=== PATIENT | female | born 1970 ===

== ENCOUNTER 2020-08-12 12:30 | Inpatient (IN) | payer OTHER ==
[~2020-08-12] VITALS: Ht 177.8 cm; Wt 145.0 kg
--- NOTE | 2020-08-12 12:45 | NUR ---
late entry for 1245: pt brought by family to ED with c/o cough, fever, fatigue, nausea, diarrhea and sore throat x 6 days. pt became sob when lying or with exertion starting yesterday. pt had a headache several days ago but denies at this time. pt is a&o, resps even and mildly labored, shallow. pt able to speak in full sentences without difficulty. afib RVR noted on arrival, no prior history of. pulse ox taken at home [employer] prevention [employer] was 55% on room air per family. outpatient covid test pending (taken 5 days ago), pt has had contact with covid+ persons. pt is neurologically intact. denies pain. all monitors in place, call light in reach. JAMIL eDl Rosario at bedside.
[2020-08-12] MEDS ORDERED: DILTIAZEM 5 MG/ML, 5ML ONE (13:16)
[2020-08-12] MEDS ORDERED: DILTIAZEM 5 MG/ML, 5ML IVPush ONE (13:30)
[2020-08-12] MEDS ORDERED: CEFTRIAXONE PMX 1GM/50ML 50 ML IVPB ONE (13:30)
[2020-08-12] MEDS ORDERED: PLEASE ENTER HEIGHT AND WEIGHT MC SCH (13:30)
[2020-08-12] MEDS ORDERED: PLEASE ENTER ALLERGIES MC SCH (13:30)
[2020-08-12] MEDS ORDERED: SODIUM CHLORIDE 0.9%, 500ML IVBOLUS ONE (13:30)
[2020-08-12] MEDS ORDERED: AZITHROMYCIN 500 MG in SODIUM CHLORIDE 0.9% 250 ML IV ONE (13:30)
[2020-08-12 13:38] LABS: ALBUMIN 2.9 g/dL (3.4-5.0); ANION GAP 8 mmol/L (5-15); CALCIUM 8.3 mg/dL (8.5-10.1); CHLORIDE 97 mmol/L (98-107)
[2020-08-12 13:39] LABS: BASOPHILS % (AUTO) 0 % (0-1); EOSINOPHILS % (AUTO) 0 % (1-7); LYMPHOCYTES % (AUTO) 27 % (22-44); MEAN CORPUSCULAR HEMOGLOBIN 30.9 pg (27.0-34.8); MEAN CORPUSCULAR HGB CONC 34.6 g/dL (32.4-35.8); MEAN PLATELET VOLUME 7.6 fL (7.4-10.4); MONOCYTES % (AUTO) 9 % (2-9); NEUTROPHILS % (AUTO) 64 % (42-75); PLATELET COUNT 158 x10^3/uL (130-400); RED BLOOD COUNT 4.47 x10^6/uL (3.82-5.3)
--- NOTE | 2020-08-12 13:40 | NUR ---
on arrival, HR was 120-180, afib. no ectopy noted. EDMD Miguel Ángel aware, diltiazem ordered and pushed slowly over 10 min. HR now 110-130s, afib, no ectopy. pt a&o, resps even and unlabored, rate 30s. no increase in work of breathing from arrival. call light in reach. all monitors in place.
[2020-08-12 13:43] LABS: MD NO
[2020-08-12 13:44] LABS: ALANINE AMINOTRANSFERASE 56 U/L (12-78); ALKALINE PHOSPHATASE 102 U/L (45-117); BILIRUBIN,TOTAL 0.3 mg/dL (0.2-1.0); CREATININE 0.67 mg/dL (0.55-1.02); TOTAL PROTEIN 6.7 g/dL (6.4-8.2)
--- NOTE | 2020-08-12 13:50 | NUR ---
report given to ALLYSON Beverly who is assuming care.
[2020-08-12 13:53] LABS: TROPONIN I 0.387 ng/mL (0.000-0.045)
[2020-08-12] MEDS ORDERED: CEFTRIAXONE PMX 1GM/50ML 50 ML ONE (14:06)
--- NOTE | 2020-08-12 14:10 | NUR ---
MD castillo notified troponin 0.387. is awaiting cardiology consult.
[2020-08-12] MEDS ORDERED: ASPIRIN 81 MG TABLET CHEW PO ONE (14:12)
--- NOTE | 2020-08-12 14:15 | NUR ---
PT IN [place]
[2020-08-12] MEDS ORDERED: OMNIPAQUE 350 MG/ML, 100ML BOTTLE ONE (14:29)
[2020-08-12] MEDS ORDERED: DEXAMETHASONE 4 MG/ML, 5ML ONE (14:36)
[2020-08-12] MEDS ORDERED: ASPIRIN 81 MG TABLET CHEW ONE (14:37)
[2020-08-12] MEDS: DEXAMETHASONE 4 MG/ML, 1ML IVPush SCH ×2 (14:40→15:03)
[2020-08-12] MEDS ORDERED: DIGOXIN 0.25 MG/ML, 2ML IVPush ONE (15:00)
[2020-08-12] MEDS ORDERED: DIGOXIN 0.25 MG/ML, 2ML ONE (15:04)
[2020-08-12] MEDS ORDERED: YAZ PO (15:23)
[2020-08-12] MEDS ORDERED: OMEP20TA62 PO (15:23)
[2020-08-12] MEDS ORDERED: LEVO125T5 PO (15:23)
[2020-08-12] MEDS ORDERED: VENL100T PO (15:23)
[2020-08-12] MEDS ORDERED: MELO15TA24 PO (15:23)
[2020-08-12] MEDS ORDERED: PHARMACY INSTRUCTION MC PRN (15:30)
[2020-08-12] MEDS ORDERED: THIAMINE 100MG TABLET PO SCH (16:00)
[2020-08-12] MEDS ORDERED: SODIUM CHLORIDE 0.9% 1,000 ML IV SCH (16:00)
[2020-08-12] MEDS ORDERED: DILTIAZEM 125 MG in SODIUM CHLORIDE 0.9% 100 ML IV SCH (16:00)
[2020-08-12] MEDS ORDERED: REMDESIVIR 200 MG in SODIUM CHLORIDE 0.9% 250 ML IVPB ONE (16:00)
[2020-08-12] MEDS ORDERED: ONDANSETRON 2MG/ML, 2ML IVPush PRN (16:00)
[2020-08-12] MEDS ORDERED: MELATONIN 5 MG TABLET PO PRN (16:00)
[2020-08-12] MEDS ORDERED: ACETAMINOPHEN 325 MG TABLET PO PRN (16:00)
[2020-08-12] MEDS ORDERED: MORPHINE SULFATE 4 MG/ML, 1ML IVPush PRN (16:30)
[2020-08-12] MEDS ORDERED: ASCORBIC ACID 250 MG TAB PO SCH (17:00)
[2020-08-12] MEDS ORDERED: METOPROLOL TARTRATE 25 MG TAB ONE (17:03)
[2020-08-12] MEDS ORDERED: ASCORBIC ACID 500 MG TABLET ONE (17:25)
[2020-08-12] MEDS: ENOXAPARIN 150 MG/ML SQ SCH (17:28)
[2020-08-12] MEDS: METOPROLOL TARTRATE 25 MG TAB PO SCH (17:28)
[2020-08-12] MEDS: DILTIAZEM 125 MG in SODIUM CHLORIDE 0.9% 100 ML IV SCH (17:35)
[2020-08-12 19:47] VITALS: BP 111/75
[2020-08-13] MEDS: METOPROLOL TARTRATE 25 MG TAB PO SCH ×3 (00:47→17:57)
[2020-08-13 02:26] VITALS: BP 109/73
[2020-08-13] MEDS: LEVOTHYROXINE 125 MCG TABLET PO SCH (04:46)
[2020-08-13] MEDS: DILTIAZEM 125 MG in SODIUM CHLORIDE 0.9% 100 ML IV SCH (04:46)
[2020-08-13] MEDS: ENOXAPARIN 150 MG/ML SQ SCH ×2 (04:46→17:57)
[2020-08-13 06:04] LABS: MEAN CORPUSCULAR HEMOGLOBIN 30.6 pg (27.0-34.8); MEAN CORPUSCULAR HGB CONC 33.9 g/dL (32.4-35.8); MEAN PLATELET VOLUME 7.9 fL (7.4-10.4); PLATELET COUNT 184 x10^3/uL (130-400); RED BLOOD COUNT 4.63 x10^6/uL (3.82-5.3); RED CELL DISTRIBUTION WIDTH 13.1 % (9.6-15.2)
[2020-08-13 06:11] LABS: ALBUMIN 2.8 g/dL (3.4-5.0); CALCIUM 8.6 mg/dL (8.5-10.1); CHLORIDE 101 mmol/L (98-107)
[2020-08-13 06:22] LABS: ALANINE AMINOTRANSFERASE 65 U/L (12-78); ALKALINE PHOSPHATASE 111 U/L (45-117); ANION GAP 7 mmol/L (5-15); BILIRUBIN,TOTAL 0.3 mg/dL (0.2-1.0); CREATININE 0.71 mg/dL (0.55-1.02); TOTAL PROTEIN 7.1 g/dL (6.4-8.2)
[2020-08-13 06:24] LABS: D-DIMER 0.57 ug/mlFEU (0.00-0.52)
[2020-08-13 06:44] VITALS: BP 104/71
[2020-08-13 06:52] LABS: MD YES
[2020-08-13 06:54] LABS: BAND#(MANUAL) 0.08 x10^3/uL; BANDS%(MANUAL) 3 % (0-7); LYMPH#(MANUAL) 1.08 x10^3/uL (1-3.4); LYMPHS% (MANUAL) 43 % (22-44); METAMYELOCYTES# (MANUAL) 0.03 x10^3/uL (0-0); METAMYELOCYTES% (MANUAL) 1 % (0-1); MONOS#(MANUAL) 0.28 x10^3/uL (0.3-2.7); MONOS% (MANUAL) 11 % (2-9); REACTIVE LYMPHS # (MANUAL) 0.05 x10^3/uL (0-0); REACTIVE LYMPHS % (MANUAL) 2 % (0-0); SEGS% (MANUAL) 40 % (42-75)
[2020-08-13 06:55] LABS: <RBC MORPHOLOGY> NORMAL
[2020-08-13 06:56] LABS: <PLATELET ESTIMATE> ADEQUATE; <PLT MORPHOLOGY> NORMAL PLT MORPH
[2020-08-13] MEDS: VENLAFAXINE 75MG TABLET PO SCH (08:57)
[2020-08-13] MEDS: OMEPRAZOLE 20 MG CAPSULE.DR PO SCH (08:57)
[2020-08-13] MEDS: ASCORBIC ACID 500 MG TABLET PO SCH ×3 (08:58→17:57)
[2020-08-13] MEDS: ZINC SULFATE 220 MG CAPSULE PO SCH (08:58)
[2020-08-13] MEDS: CHOLECALCIFEROL 5,000u TAB PO SCH (08:58)
[2020-08-13] MEDS: DEXAMETHASONE 4 MG/ML, 1ML IVPush SCH (08:59)
[2020-08-13] MEDS: DILTIAZEM 120 MG CAP.ER.24H PO SCH ×2 (11:46→20:35)
[2020-08-13 12:03] VITALS: BP 111/75
[2020-08-13] MEDS: CEFTRIAXONE PMX 1GM/50ML 50 ML IV SCH (13:46)
[2020-08-13] MEDS: AZITHROMYCIN 500 MG in SODIUM CHLORIDE 0.9% 250 ML IV SCH (14:57)
[2020-08-13] MEDS: REMDESIVIR 100 MG in SODIUM CHLORIDE 0.9% 250 ML IVPB SCH (15:16)
[2020-08-13 18:57] LABS: CLOSTRIDIUM DIFFICILE ANTIGEN NEGATIVE; CLOSTRIDIUM DIFFICILE TOXIN NEGATIVE (Negative)
[2020-08-13 20:08] VITALS: BP 98/76
[2020-08-14] MEDS: METOPROLOL TARTRATE 25 MG TAB PO SCH ×2 (00:44→07:52)
[2020-08-14 02:22] VITALS: BP 115/78
[2020-08-14] MEDS: LEVOTHYROXINE 125 MCG TABLET PO SCH (05:11)
[2020-08-14] MEDS: ENOXAPARIN 150 MG/ML SQ SCH ×2 (05:11→16:57)
[2020-08-14 06:25] LABS: CHLORIDE 106 mmol/L (98-107)
[2020-08-14 06:34] LABS: MEAN CORPUSCULAR HEMOGLOBIN 30.5 pg (27.0-34.8); MEAN CORPUSCULAR HGB CONC 33.6 g/dL (32.4-35.8); MEAN PLATELET VOLUME 8.2 fL (7.4-10.4); PLATELET COUNT 230 x10^3/uL (130-400); RED BLOOD COUNT 4.27 x10^6/uL (3.82-5.3); RED CELL DISTRIBUTION WIDTH 12.9 % (9.6-15.2)
[2020-08-14 06:36] LABS: ALANINE AMINOTRANSFERASE 74 U/L (12-78); ALBUMIN 2.6 g/dL (3.4-5.0); ALKALINE PHOSPHATASE 94 U/L (45-117); ANION GAP 5 mmol/L (5-15); BILIRUBIN,TOTAL 0.4 mg/dL (0.2-1.0); CALCIUM 8.2 mg/dL (8.5-10.1); CREATININE 0.58 mg/dL (0.55-1.02); TOTAL PROTEIN 6.1 g/dL (6.4-8.2)
[2020-08-14] MEDS: CHOLECALCIFEROL 5,000u TAB PO SCH (07:52)
[2020-08-14] MEDS: ZINC SULFATE 220 MG CAPSULE PO SCH (07:52)
[2020-08-14] MEDS: OMEPRAZOLE 20 MG CAPSULE.DR PO SCH (07:52)
[2020-08-14] MEDS: VENLAFAXINE 75MG TABLET PO SCH (07:52)
[2020-08-14] MEDS: ASCORBIC ACID 500 MG TABLET PO SCH ×3 (07:52→16:56)
[2020-08-14] MEDS: DILTIAZEM 120 MG CAP.ER.24H PO SCH (07:53)
[2020-08-14] MEDS: DEXAMETHASONE 4 MG/ML, 1ML IVPush SCH (07:53)
[2020-08-14 07:55] VITALS: BP 111/79
[2020-08-14 09:18] LABS: MD YES
[2020-08-14 09:22] LABS: LYMPH#(MANUAL) 1.14 x10^3/uL (1-3.4); LYMPHS% (MANUAL) 38 % (22-44); MONOS#(MANUAL) 0.72 x10^3/uL (0.3-2.7); MONOS% (MANUAL) 24 % (2-9); SEG#(MANUAL) 1.14 x10^3/uL (1.8-6.8); SEGS% (MANUAL) 38 % (42-75)
[2020-08-14 09:23] LABS: <PLATELET ESTIMATE> ADEQUATE; <PLT MORPHOLOGY> NORMAL PLT MORPH; <RBC MORPHOLOGY> NORMAL
[2020-08-14 12:01] VITALS: BP 101/71
[2020-08-14] MEDS: CEFTRIAXONE PMX 1GM/50ML 50 ML IV SCH (14:29)
[2020-08-14] MEDS: AZITHROMYCIN 500 MG in SODIUM CHLORIDE 0.9% 250 ML IV SCH (15:27)
[2020-08-14] MEDS ORDERED: POTASSIUM CHLORIDE 20 MEQ TAB.ER.PRT PO ONE (16:00)
[2020-08-14] MEDS ORDERED: FUROSEMIDE 40 MG/4 ML IV ONE (16:00)
[2020-08-14] MEDS: LACTOBACILLUS CHEW TABLET PO SCH ×2 (16:57→20:58)
[2020-08-14] MEDS: REMDESIVIR 100 MG in SODIUM CHLORIDE 0.9% 250 ML IVPB SCH (16:57)
[2020-08-14 18:53] VITALS: BP 110/76
[2020-08-14] MEDS: DILTIAZEM CD 180 MG CAP.ER.24H PO SCH (20:59)
[2020-08-15 00:40] VITALS: BP 83/42
[2020-08-15 04:00] VITALS: BP 116/81
[2020-08-15] MEDS: LEVOTHYROXINE 125 MCG TABLET PO SCH (05:24)
[2020-08-15] MEDS: ENOXAPARIN 150 MG/ML SQ SCH ×2 (05:24→16:31)
[2020-08-15 06:22] LABS: BASOPHILS % (AUTO) 0 % (0-1); EOSINOPHILS % (AUTO) 0 % (1-7); LYMPHOCYTES % (AUTO) 49 % (22-44); MEAN CORPUSCULAR HGB CONC 34.2 g/dL (32.4-35.8); MEAN PLATELET VOLUME 7.1 fL (7.4-10.4); MONOCYTES % (AUTO) 19 % (2-9); NEUTROPHILS % (AUTO) 32 % (42-75); PLATELET COUNT 252 x10^3/uL (130-400); RED BLOOD COUNT 4.31 x10^6/uL (3.82-5.3); RED CELL DISTRIBUTION WIDTH 13.3 % (9.6-15.2)
[2020-08-15 06:23] LABS: MD NO
[2020-08-15 06:48] VITALS: BP 116/88
[2020-08-15 06:53] LABS: D-DIMER < 0.19 ug/mlFEU (0.00-0.52); FIBRINOGEN 337 mg/dL (200-340)
[2020-08-15] MEDS ORDERED: DEXAMETHASONE 4 MG/ML, 5ML ONE (09:27)
[2020-08-15] MEDS: VENLAFAXINE 75MG TABLET PO SCH (09:58)
[2020-08-15] MEDS: CHOLECALCIFEROL 5,000u TAB PO SCH (09:58)
[2020-08-15] MEDS: OMEPRAZOLE 20 MG CAPSULE.DR PO SCH (09:58)
[2020-08-15] MEDS: ZINC SULFATE 220 MG CAPSULE PO SCH (09:58)
[2020-08-15] MEDS: DILTIAZEM CD 180 MG CAP.ER.24H PO SCH ×2 (09:58→20:22)
[2020-08-15] MEDS: ASCORBIC ACID 500 MG TABLET PO SCH ×3 (09:58→16:31)
[2020-08-15] MEDS: DEXAMETHASONE 4 MG/ML, 1ML IVPush SCH (09:59)
[2020-08-15] MEDS ORDERED: DIPHENOXYLATE/ATROPINE TABLET PO PRN (10:00)
[2020-08-15] MEDS: CEFTRIAXONE PMX 1GM/50ML 50 ML IV SCH (13:17)
[2020-08-15 14:00] VITALS: BP 112/75
[2020-08-15] MEDS: AZITHROMYCIN 500 MG in SODIUM CHLORIDE 0.9% 250 ML IV SCH (14:14)
[2020-08-15] MEDS: REMDESIVIR 100 MG in SODIUM CHLORIDE 0.9% 250 ML IVPB SCH (16:32)
[2020-08-15 18:56] VITALS: BP 106/70
[2020-08-16 00:05] VITALS: BP 119/86
[2020-08-16] MEDS: LEVOTHYROXINE 125 MCG TABLET PO SCH (05:33)
[2020-08-16] MEDS: ENOXAPARIN 150 MG/ML SQ SCH (05:35)
[2020-08-16 06:34] VITALS: BP 108/70
[2020-08-16 06:49] LABS: ALBUMIN 2.7 g/dL (3.4-5.0); ANION GAP 7 mmol/L (5-15); CALCIUM 8.3 mg/dL (8.5-10.1); CHLORIDE 104 mmol/L (98-107)
[2020-08-16 06:52] LABS: ALANINE AMINOTRANSFERASE 81 U/L (12-78); ALKALINE PHOSPHATASE 92 U/L (45-117); BILIRUBIN,TOTAL 0.6 mg/dL (0.2-1.0); CREATININE 0.47 mg/dL (0.55-1.02); TOTAL PROTEIN 6.1 g/dL (6.4-8.2)
[2020-08-16] MEDS ORDERED: DEXAMETHASONE 4 MG/ML, 5ML ONE (08:54)
[2020-08-16] MEDS: DILTIAZEM CD 180 MG CAP.ER.24H PO SCH (09:06)
[2020-08-16] MEDS: ZINC SULFATE 220 MG CAPSULE PO SCH (09:06)
[2020-08-16] MEDS: VENLAFAXINE 75MG TABLET PO SCH (09:06)
[2020-08-16] MEDS: CHOLECALCIFEROL 5,000u TAB PO SCH (09:06)
[2020-08-16] MEDS: ASCORBIC ACID 500 MG TABLET PO SCH ×2 (09:06→12:08)
[2020-08-16] MEDS: DEXAMETHASONE 4 MG/ML, 1ML IVPush SCH (09:07)
[2020-08-16] MEDS: OMEPRAZOLE 20 MG CAPSULE.DR PO SCH (09:07)
[2020-08-16] MEDS ORDERED: ZINC220C7 PO (09:44)
[2020-08-16] MEDS ORDERED: LOPE2CAP3 PO (09:44)
[2020-08-16] MEDS ORDERED: ASCO500T9 PO (09:44)
[2020-08-16] MEDS ORDERED: CHOL500045 PO (09:44)
[2020-08-16] MEDS ORDERED: DILT180C53 PO (09:44)
[2020-08-16] MEDS ORDERED: DEXA6TAB6 PO (09:44)
[2020-08-16] MEDS: REMDESIVIR 100 MG in SODIUM CHLORIDE 0.9% 250 ML IVPB SCH (12:09)
[2020-08-16 14:00] VITALS: BP 116/77
[2020-08-16] MEDS: CEFTRIAXONE PMX 1GM/50ML 50 ML IV SCH (14:06)
[2020-08-16] MEDS: AZITHROMYCIN 500 MG in SODIUM CHLORIDE 0.9% 250 ML IV SCH (14:06)
== END 2020-08-16 15:30 | disposition home or self-care (01) | DRG 177 ==
LOC: SUATTDRO 15:22 → ED 16:00 → EDIP 16:04 → 4WST 18:33
PROVIDERS: ADMIT Internal Medicine; ATTEND Internal Medicine
PROC: XW033E5 Introduction of Remdesivir Anti-infective into Peripheral Vein, Percutaneous Approach, New Technology Group 5 (ICD-10-PCS; principal; 2020-08-12)
DX: U07.1 COVID-19 (principal); I21.A1 Myocardial infarction type 2; J12.89 Other viral pneumonia; J96.01 Acute respiratory failure with hypoxia; D68.69 Other thrombophilia; E87.1 Hypo-osmolality and hyponatremia; Z68.42 Body mass index [BMI] 45.0-49.9, adult; E03.9 Hypothyroidism, unspecified; E66.9 Obesity, unspecified; F32.9 Major depressive disorder, single episode, unspecified; I10 Essential (primary) hypertension; I48.91 Unspecified atrial fibrillation; M19.90 Unspecified osteoarthritis, unspecified site; Z87.891 Personal history of nicotine dependence; E88.09 Other disorders of plasma-protein metabolism, not elsewhere classified
CPT/HCPCS: 36415; 71045; 71275; 80053; 83605; 84145; 84443; 84484; 85025; 85379; 85384; 87040; 87324; 93005; 93306; 99291; G0378; J0456; J0696; J1100; J1650; J1940; Q9967; J1160; J7030; J7040; J7050; U0003